=== PATIENT | male | born 2000 | race Caucasian/White ===

== ENCOUNTER 2022-05-21 05:52 | Emergency (ER) | payer BC ==
[~2022-05-21] VITALS: Ht 185.4 cm; Wt 133.8 kg
[2022-05-21 05:57] VITALS: BP_SYST 123
--- NOTE | 2022-05-21 06:00 | NUR ---
PT HERE C/O RLQ ABD PAIN X3 DAYS, DENIES N/V/D, DENIES DYSURIA. PT WAS HERE EARLIER FOR SAME REASON AND LWBS. PMH:PSYCH PT AAOX4, NO SOB NOTED AND AND. PENDING MD BERNAL
--- NOTE | 2022-05-21 06:16 | NUR ---
PT SEEN AND EXAMINE BY DR. NICOLAS
--- NOTE | 2022-05-21 07:00 | NUR ---
PT TAKEN TO LAB FOR BLOOD DRAW
[2022-05-21 07:31] LABS: CALCIUM 8.8 mg/dL (8.4-11.0); CREATININE 1.02 mg/dL (0.55-1.30)
[2022-05-21 07:34] LABS: ALBUMIN 3.8 g/dL (3.4-4.8); TOTAL BILIRUBIN 0.5 mg/dL (0.0-1.0)
[2022-05-21 08:14] LABS: BASOPHILS % (AUTO) 0.5 % (0.0-2.0); EOSINOPHILS # (AUTO) 0.6 K/uL (0.0-0.4); EOSINOPHILS % (AUTO) 8.8 % (0.0-4.0); HEMATOCRIT 45.2 % (36-54); HEMOGLOBIN 15.5 g/dL (14.0-18.0); LYMPHOCYTES % (AUTO) 30.3 % (20.5-51.5); MEAN CORPUSCULAR HEMOGLOBIN 30 pg (27-31); MEAN CORPUSCULAR HGB CONC 34 % (32-36); MEAN CORPUSCULAR VOLUME 88 fL (79.0-98.0); MONOCYTES # (AUTO) 0.6 K/uL (0.0-1.0); NEUTROPHILS # (AUTO) 3.4 K/uL (1.8-7.7); NEUTROPHILS % (AUTO) 51.4 % (40.0-70.0); PLATELET COUNT (AUTO) 253 K/uL (130-430); RED BLOOD CELL COUNT(AUTO) 5.16 MIL/uL (4.2-6.2); RED CELL DISTRIBUTION WIDTH 12.9 % (9.0-15.0)
[2022-05-21 08:47] LABS: WHITE BLOOD COUNT (AUTO) 6.6 K/uL (4.8-10.8)
[2022-05-21] MEDS ORDERED: TRAM50TA2 PO ×3 (09:17→11:45)
[2022-05-21 09:32] VITALS: BP_SYST 123
--- NOTE | 2022-05-21 09:34 | NUR ---
Patient given written and verbal discharge instructions and verbalizes understanding. ER MD discussed with patient the results and treatment provided. Patient in stable condition. ID arm band removed. Rx of ULTRAM given. Patient educated on pain management and to follow up with PMD. Pain Scale 0/10. Opportunity for questions provided and answered. Medication side effect fact sheet provided.
== END 2022-05-21 09:33 | disposition home or self-care (01) ==
LOC: SED 05:52
DX: R10.9 Unspecified abdominal pain (principal); Z79.899 Other long term (current) drug therapy
CPT/HCPCS: 36415; 76376; 80053; 83690; 85025; 99284